=== PATIENT | female | born 1995 | race Caucasian/White ===

== ENCOUNTER 2022-08-11 13:53 | Emergency (ER) | payer MEDICAID ==
[~2022-08-11] VITALS: Ht 152.4 cm; Wt 77.9 kg
[2022-08-11] MEDS ORDERED: PREN1TAB78 PO (13:57)
[2022-08-11] MEDS ORDERED: ACETAMINOPHEN 325MG TABLET PO ONE ×2 (14:15→16:15)
[2022-08-11 14:23] LABS: BASOPHILS % 0.2 % (0.0-2.0); EOSINOPHILS % 0.2 % (0.0-5.0); HEMATOCRIT. 33.3 % (36.0-48.0); HEMOGLOBIN. 11.3 g/dL (12.0-16.0); MEAN CORPUSCULAR HEMOGLOBIN 30.3 pg (28.0-32.0); MEAN CORPUSCULAR VOLUME 89.4 fL (81.0-99.0); MEAN PLATELET VOLUME 8.4 fl (7.4-10.4); MONOCYTES % 4.6 % (2.0-8.0); PLATELET 220 x1000/uL (130-400); RED BLOOD CELL COUNT 3.72 mill/uL (4.2-5.4); RED CELL DISTRIBUTION WIDTH 13.1 % (11.6-14.6)
[2022-08-11 14:34] LABS: CHLORIDE 110 mEq/L (98-107)
[2022-08-11 14:35] LABS: D-DIMER 0.71 mg/L FEU (<0.50); INR 0.9; PARTIAL THROMBOPLASTIN TIME 23.2 sec (23.4-31.0)
[2022-08-11 14:55] LABS: B-HCG QUANTITATIVE 17110 mIU/mL (<3)
[2022-08-11 14:56] LABS: CLARITY URINE TURBID (CLEAR); COLOR URINE YELLOW (YELLOW); KETONES URINE 2+ (NEGATIVE); LEUKOCYTE ESTERASE URINE 2+ (NEGATIVE); NITRITE URINE NEGATIVE (NEGATIVE); OCCULT BLOOD URINE NEGATIVE (NEGATIVE); PH URINE 8.5 (4.5-8.0); PROTEIN URINE 2+ (NEGATIVE); SPECIFIC GRAVITY URINE 1.017 (1.005-1.030)
[2022-08-11] MEDS ORDERED: CEFTRIAXONE 1 G PREMIX 50 ML IV ONE (16:15)
[2022-08-11] MEDS ORDERED: SODIUM CHLORIDE 0.9% 1,000 ML IV ONE (16:45)
[2022-08-11] MEDS ORDERED: IOHEXOL-350 100 ML BOTTLE ONE (17:05)
[2022-08-11] MEDS ORDERED: TOPUD MT (17:38)
[2022-08-11] MEDS ORDERED: CEPH500C2 MT (17:38)
[2022-08-11 19:30] VITALS: BP 121/57
== END 2022-08-11 19:40 | disposition home or self-care (01) ==
LOC: ER 13:53
DX: O23.32 Infections of other parts of urinary tract in pregnancy, second trimester (principal); Z3A.26 26 weeks gestation of pregnancy; R06.02 Shortness of breath
CPT/HCPCS: 36415; 71275; 76805; 80053; 81003; 83690; 83880; 84484; 84702; 85025; 85379; 85610; 85730; 87086; 93005; 93970; 96365; 99285; J0696; J7030; Q9967